=== PATIENT | female | born 1995 | race Caucasian/White ===

== ENCOUNTER 2023-04-01 08:55 | Emergency (ER) | payer SELFPAY ==
[2023-04-01 09:08] VITALS: BP 110/69; PULSE 76; RESP 20; TEMP 98.1; BMI 32.4
== END 2023-04-01 11:10 | disposition home or self-care (01) ==
LOC: JERFT 08:55
DX: R05.9 Cough, unspecified (principal); R09.81 Nasal congestion; R53.83 Other fatigue; R50.9 Fever, unspecified; Z20.822 Contact with and (suspected) exposure to COVID-19
CPT/HCPCS: 0241U-QW; 99283-25

== ENCOUNTER 2023-04-16 12:58 | Emergency (ER) | payer SELFPAY ==
[2023-04-16 13:14] VITALS: BMI 32.3
[2023-04-16] MEDS ORDERED: ACETAMINOPHEN 500 MG TABLET (FP) PO ONE (13:56)
[2023-04-16] MEDS ORDERED: ACETAMINOPHEN 500 MG TABLET (FP) ONE (14:10)
[2023-04-16 15:08] VITALS: RESP 18
[2023-04-16] MEDS ORDERED: KETOROLAC TROMETHAMINE 30 MG/1 ML VIAL IM ONE (15:12)
[2023-04-16] MEDS ORDERED: KETOROLAC TROMETHAMINE 30 MG/1 ML VIAL ONE (15:15)
[2023-04-16 16:14] VITALS: BP 91/59; PULSE 99; TEMP 100.5
== END 2023-04-16 16:17 | disposition home or self-care (01) ==
LOC: JER 12:58
PROC: 3E0233Z Introduction of Anti-inflammatory into Muscle, Percutaneous Approach (ICD-10-PCS; principal; 2023-04-16)
DX: M79.10 Myalgia, unspecified site (principal); R68.83 Chills (without fever); R50.9 Fever, unspecified; R05.9 Cough, unspecified; R51.9 Headache, unspecified; J10.1 Influenza due to other identified influenza virus with other respiratory manifestations; Z20.822 Contact with and (suspected) exposure to COVID-19
CPT/HCPCS: 0241U-QW; 84703; 99284-25

== ENCOUNTER 2023-07-24 08:00 | Emergency (ER) | payer BC ==
[2023-07-24 08:14] VITALS: RESP 20; BMI 31.9
[2023-07-24 08:58] LABS: EPI CELLS 7 /uL (0-25.1); HYALINE CASTS 0 /uL (0-3.1); URINE APPEARANCE CLEAR; URINE BACTERIA 35 /uL (0-1359); URINE BILIRUBIN NEGATIVE (NEGATIVE); URINE COLOR YELLOW; URINE GLUCOSE (UA) NEGATIVE (NEGATIVE); URINE KETONE NEGATIVE (NEGATIVE); URINE LEUK ESTERASE NEGATIVE (NEGATIVE); URINE NITRITE NEGATIVE (NEGATIVE); URINE PROTEIN NEGATIVE (NEGATIVE); URINE RBC 594 /uL (0-23.9); URINE WBC 6 /uL (0-25.8)
[2023-07-24 09:01] LABS: HCG,QUALITATIVE URINE Negative
[2023-07-24] MEDS ORDERED: KETOROLAC TROMETHAMINE 30 MG/1 ML VIAL ONE (09:36)
[2023-07-24] MEDS: KETOROLAC TROMETHAMINE 30 MG/1 ML VIAL IM ONE (09:39)
[2023-07-24 10:46] VITALS: BP 101/61; PULSE 57; TEMP 98.1
== END 2023-07-24 10:53 | disposition home or self-care (01) ==
LOC: JER 08:00
PROC: 3E0233Z Introduction of Anti-inflammatory into Muscle, Percutaneous Approach (ICD-10-PCS; principal; 2023-07-24)
DX: N94.6 Dysmenorrhea, unspecified (principal); L30.9 Dermatitis, unspecified; R10.33 Periumbilical pain
CPT/HCPCS: 81003; 84703; 87086; 99284-25

== ENCOUNTER 2023-11-20 14:19 | Emergency (ER) | payer BC ==
[2023-11-20 14:38] VITALS: BP 107/68; PULSE 80; RESP 18; TEMP 98.6; BMI 30.7
[2023-11-20 15:21] LABS: BASO % 0.3 % (0-2.0); EOS % 2.5 % (0-4.5); HEMATOCRIT 31.9 % (32.4-45.2); HEMOGLOBIN 10.4 GM/dL (10.7-15.3); LYMPH % 18.6 % (8-40); MCH 21.5 pg (25.7-33.7); MCHC 32.7 g/dl (32.0-36.0); MEAN CELL VOLUME 65.7 fl (80-96); MEAN PLT VOLUME 8.2 fl (7.5-11.1); MONO % 5.9 % (3.8-10.2); NEUT % 72.7 % (42.8-82.8); PLATELET COUNT 353 10^3/uL (134-434); RBC 4.85 M/mm3 (3.60-5.2); RDW 18.3 % (11.6-15.6); WHITE BLOOD COUNT 11.9 K/mm3 (4.0-10.0)
[2023-11-20 15:42] LABS: HCG,QUALITATIVE URINE Positive; PH,URINE 6.5 (5.0-8.0); URINE APPEARANCE CLEAR; URINE BILIRUBIN NEGATIVE (NEGATIVE); URINE COLOR YELLOW; URINE GLUCOSE (UA) NEGATIVE (NEGATIVE); URINE KETONE NEGATIVE (NEGATIVE); URINE LEUK ESTERASE NEGATIVE (NEGATIVE); URINE NITRITE NEGATIVE (NEGATIVE); URINE PROTEIN NEGATIVE (NEGATIVE)
[2023-11-20 16:01] LABS: POTASSIUM 4.4 mmol/L (3.5-5.1)
[2023-11-20 16:02] LABS: CALCIUM 8.5 mg/dL (8.5-10.1)
[2023-11-20 16:03] LABS: BLOOD UREA NITROGEN 12.6 mg/dL (7-18)
[2023-11-20 16:06] LABS: CREATININE 0.7 mg/dL (0.55-1.3)
[2023-11-20 16:24] LABS: ANISOCYTOSIS 2+; MACROCYTOSIS 1+; TARGET CELLS 1+
[2023-11-20 16:29] LABS: PLATELET ESTIMATE ADEQUATE
== END 2023-11-20 20:02 | disposition home or self-care (01) ==
LOC: JER 14:19
DX: O26.891 Other specified pregnancy related conditions, first trimester (principal); R10.30 Lower abdominal pain, unspecified; Z3A.08 8 weeks gestation of pregnancy
CPT/HCPCS: 36415; 76817-TC; 80048; 81003; 84702; 84703; 85025; 86850; 86900; 86901; 87086; 87186; 99284-25

== ENCOUNTER 2024-01-12 20:58 | Emergency (ER) | payer BC ==
[2024-01-12 21:15] VITALS: BP 129/76; PULSE 84; RESP 18; TEMP 98.8; BMI 34.4
== END 2024-01-13 01:04 | disposition home or self-care (01) ==
LOC: JER 20:58
DX: O36.4XX0 Maternal care for intrauterine death, not applicable or unspecified (principal)
CPT/HCPCS: 76815-TC; 99284-25

== ENCOUNTER 2024-01-13 16:32 | Emergency (ER) | payer BC ==
[2024-01-13 16:48] VITALS: BP 135/78; PULSE 78; RESP 20; TEMP 98.5; BMI 35.5
== END 2024-01-13 18:21 | disposition home or self-care (01) ==
LOC: JER 16:32
DX: O02.1 Missed abortion (principal)
CPT/HCPCS: 99283-25

== ENCOUNTER 2024-01-19 04:23 | Day surgery (SDC) | payer BC ==
[2024-01-16 12:12] VITALS: BMI 35.5
[2024-01-19] MEDS ORDERED: oxyCODONE HCL 5 MG TABLET PO PRN (09:19)
[2024-01-19] MEDS ORDERED: IBUPROFEN 400 MG TABLET (FP) PO PRN (09:19)
[2024-01-19] MEDS ORDERED: ACETAMINOPHEN 325 MG TABLET (FP) PO PRN (09:19)
[2024-01-19] MEDS ORDERED: ONDANSETRON 4 MG/2 ML VIAL IVPUSH PRN (09:20)
[2024-01-19] MEDS ORDERED: SUCCINYLCHOLINE CHLORIDE 200 MG/10 ML SYRINGE ONE (09:52)
[2024-01-19] MEDS ORDERED: MIDAZOLAM HCL 2 MG/2 ML SINGLE DOSE VIAL ONE (09:52)
[2024-01-19] MEDS ORDERED: PROPOFOL 20 ML ONE (09:52)
[2024-01-19] MEDS: DOXYCYCLINE HYCLATE 100 MG VIAL IVPB ONE ×2 (10:10)
[2024-01-19] MEDS ORDERED: DOXYCYCLINE INJECTION 100 MG in DEXTROSE 5%-WATER 100 ML IVPB ONE (10:15)
[2024-01-19] MEDS: METHYLERGONOVINE MALEATE 0.2 MG/1 ML AMP IM ONE ×3 (10:15→10:38)
[2024-01-19 11:52] VITALS: RESP 16
[2024-01-19 13:47] VITALS: BP 113/61; PULSE 87; TEMP 97.2
== END 2024-01-19 16:22 | disposition home or self-care (01) ==
LOC: JASU-SURG 04:23
PROVIDERS: ATTEND Obstetrics & Gynecology
PROC: 10D17ZZ Extraction of Products of Conception, Retained, Via Natural or Artificial Opening (ICD-10-PCS; principal; 2024-01-19 09:00)
DX: O02.1 Missed abortion (principal); Z3A.15 15 weeks gestation of pregnancy
CPT/HCPCS: 76998-TC; 81025; 88305-TC; 94760

== ENCOUNTER 2024-07-31 00:26 | Emergency (ER) | payer BC ==
[2024-07-31 00:32] VITALS: BP 118/65; PULSE 84; RESP 18; TEMP 98.4; BMI 33.7
[2024-07-31] MEDS ORDERED: ERYTHROMYCIN 0.5% OPHTHALMIC OINTMENT 3.5 GM TUBE ONE (01:13)
[2024-07-31] MEDS ORDERED: ERYTHROMYCIN 0.5% OPHTHALMIC OINTMENT 3.5 GM TUBE OD SCH (10:00)
== END 2024-07-31 01:16 | disposition home or self-care (01) ==
LOC: JER 00:26
DX: H10.9 Unspecified conjunctivitis (principal); B96.89 Other specified bacterial agents as the cause of diseases classified elsewhere
CPT/HCPCS: 99283-25

== ENCOUNTER 2024-12-01 14:38 | Emergency (ER) | payer OTHER, BC ==
[2024-12-01 14:50] VITALS: BP 110/60; PULSE 86; RESP 18; TEMP 98.1; BMI 33.9
[2024-12-01] MEDS ORDERED: KETOROLAC TROMETHAMINE 15 MG/ML VIAL ONE (16:37)
[2024-12-01] MEDS: KETOROLAC TROMETHAMINE 15 MG/ML VIAL IM ONE (16:43)
== END 2024-12-01 17:42 | disposition home or self-care (01) ==
LOC: JERFT 14:38
PROC: 3E0233Z Introduction of Anti-inflammatory into Muscle, Percutaneous Approach (ICD-10-PCS; principal; 2024-12-01)
DX: S16.1XXA Strain of muscle, fascia and tendon at neck level, initial encounter (principal); S39.012A Strain of muscle, fascia and tendon of lower back, initial encounter; R51.9 Headache, unspecified; I49.8 Other specified cardiac arrhythmias; V87.7XXA Person injured in collision between other specified motor vehicles (traffic), initial encounter; Y92.410 Unspecified street and highway as the place of occurrence of the external cause
CPT/HCPCS: 72125-TC; 72131-TC; 84703; 93005; 93010; 99285-25